=== PATIENT | female | born 1990 | race Caucasian/White ===

== ENCOUNTER 2017-03-18 08:03 | Emergency (ER) | payer OTHER ==
[~2017-03-18] VITALS: Ht 162.6 cm; Wt 51.1 kg
[~2017-03-18 08:03] MED LIST: SPIR25TA3 PO
[2017-03-18] MEDS ORDERED: PRENANTAL (08:42)
[2017-03-18 09:26] LABS: HEMATOCRIT 41.1 % (34.6-47.8); HEMOGLOBIN 13.9 g/dL (11.7-16.4); WHITE BLOOD COUNT 4.4 x10^3/uL (3.4-10)
[2017-03-18 11:08] LABS: BLOOD UREA NITROGEN 9 mg/dL (7-18)
[2017-03-18 12:15] VITALS: BP 103/57
== END 2017-03-18 13:02 | disposition home or self-care (01) ==
LOC: ED 08:53
DX: O20.0 Threatened abortion (principal); Z3A.01 Less than 8 weeks gestation of pregnancy
CPT/HCPCS: 36415; 76801; 80048; 81001; 82040; 84702; 85025; 86901; 87086; 99285